=== PATIENT | female | born 1945 | race Caucasian/White ===

== ENCOUNTER 2021-03-28 12:41 | Outpatient (CLI) | payer MEDICARE, SELFPAY ==
--- NOTE | ~2021-03-28 | MMUS_ITS ---
EXAMINATION: MM diagnostic jared BI w vanessa, US breast BI complete HISTORY: Right recent inverted nipple TECHNIQUE: ML, MLO and craniocaudal 3-D tomosynthesis images of both breasts were performed and [facility] were generated. CAD analysis was submitted and interpreted. High resolution complete bilateral breast ultrasound was performed. COMPARISON: 05/23/2019 bilateral digital screening mammogram 12/24/2015 Limited left breast ultrasound examination 06/04/2015 and 10/31/2014 diagnostic left mammogram and limited left breast ultrasound 10/20/2014 bilateral digital screening mammogram BREAST PARENCHYMAL COMPOSITION: There are scattered areas of fibroglandular density. FINDINGS: MAMMOGRAPHIC FINDINGS: There are scattered 5 mm or smaller circumscribed right breast low-density opacities with likely kaushik gn mammographic features. Possible subtle architectural distortion in the upper mid left breast on MLO view. No suspicious mass or architectural distortion, malignant calcification, skin thickening or retractio n of either breast is noted otherwise. ULTRASOUND: Right breast: 6:00 1 cm from nipple: Parallel circumscribed 2.3 x 3 x 4 mm hypoechoic lesion without internal vascu larity or posterior shadowing, likely benign 12:00 3 cm from nipple: Rounded 3.7 mm sonolucency consistent with cyst No suspicious mass or shadowing is detected. IMPRESSION: 1. No mammographic evidence of malignancy 2. Routine mammographic screening is recommended BI-RADS Category 2: Benign finding(s). Reviewed, dictated and finalized at location A. IMPRESSION: 1. No mammographic evidence of malignancy 2. Routine mammographic screening is recommended BI-RADS Category 2: Benign finding(s).
== END 2021-03-28 12:42 | disposition home or self-care (01) ==
LOC: ANHIMG 12:41
PROVIDERS: PCP Family Medicine; Visit Provider Physician Assistant Medical
DX: N64.59 Other signs and symptoms in breast (principal); R92.8 Other abnormal and inconclusive findings on diagnostic imaging of breast
CPT/HCPCS: 76641; 77062; 77066; G0279

== ENCOUNTER 2021-05-31 00:24 | Day surgery (SDC) | payer MEDICARE, SELFPAY ==
[2021-05-21 15:00] VITALS: BMI 23.4
--- NOTE | 2021-05-31 07:12 | PM.HPGS ---
History of Present Illness History of Present Illness Consent: Risks, benefits, and alternatives have been discussed and questions answered. Patient agrees to proceed with procedure. Chief complaint: family hx of colon ca Narrative: Alysha Casillas is a 76 year old female Here for colon cancer screening. Her sister had colon cancer Review of Systems Review of Systems: All systems reviewed & are unremarkable except as noted in HPI and below PMFSH Past Medical History Medical History (Updated 05/31/21 @ 08:07 by Manuel Willoughby MD) Essential (primary) hypertension Surgical History Surgical History H/O basal cell carcinoma excision Family History Family History Mother Family history of osteoporosis, Onset Age: 86 Hypertension, Onset Age: 86 Family history of elevated blood lipids, Onset Age: 86 Family history of cardiovascular disease, Onset Age: 86 Family history of malignant neoplasm of breast in first degree relative, Onset Age: 86 Family history of congestive heart failure, Onset Age: 86 Father Family history of emphysema, Onset Age: 60 Other Family history of hypercholesterolemia Social History Social History Smoking status: Never smoker Substance use type: does not use Living arrangements: with family Gender identity (if verbalized by the patient): Female Meds Home Medications and Allergies Home Medications Medication Instructions Recorded Confirmed Type lisinopril 5 mg tablet 5 mg PO DAILY #90 tablet 04/30/20 05/21/21 Rx simvastatin 10 mg tablet See Rx Instructions .ROUTE 05/15/21 05/21/21 Rx .COMPLEX #90 tablet Allergies Allergy/AdvReac Type Severity Reaction Status Date / Time raloxifene Allergy Unknown Anemia Verified 05/31/21 07:34 Exam Resp: Auscultation: clear to auscultation bilaterally Cardio: Rate: regular rate Rhythm: regular rhythm GI: GI Palp: Yes Soft to palpation and No Tenderness to palpation present (GI) Assessment and Plan Assessment and plan (1) Colon cancer screening: Code(s): Z12.11 - Encounter for screening for malignant neoplasm of colon Status: Acute Assessment and Plan: Colonoscopy with possible biopsy or polypectomy or cautery or injection of substances.
[2021-05-31 07:35] VITALS: BP 113/91; PULSE 63; RESP 14; TEMP 36.2; O2SAT 99; BMI 23.3
[2021-05-31] MEDS: LACTATED RINGERS 1,000 ML 150 ML IV CONT (07:49)
--- NOTE | 2021-05-31 08:12 | WPDANESEPPF ---
Anes - Initial Pre Proc Eval Procedure: Operation Date: 05/31/21 08:30 Proposed Procedures p Screening Colonoscopy - Андрей Yost MD Date/Time: 05/31/21 08:12 Surgeon: Андрей Yost MD Pre Op Diagnosis: family hx of colon ca Patient Data Age: 76 Gender: F Height: 1.6 m Weight: 59.7 kg Last Vital Signs Temp 97.1 F L 05/31/21 07:35 Pulse 63 05/31/21 07:35 Resp 14 05/31/21 07:35 BP 113/91 H 05/31/21 07:35 Pulse Ox 99 05/31/21 07:35 Allergies Allergy/AdvReac Type Severity Reaction Status Date / Time raloxifene Allergy Unknown Anemia Verified 05/31/21 07:34 Home Medications Medication Instructions Recorded Confirmed Type lisinopril 5 mg tablet 5 mg PO DAILY #90 tablet 04/30/20 05/31/21 Rx simvastatin 10 mg tablet See Rx Instructions .ROUTE 05/15/21 05/31/21 Rx .COMPLEX #90 tablet Patient hx anesthesia problems: none Family hx anesthesia problems: none PMFSH Past Medical History Medical History (Updated 05/31/21 @ 08:07 by Manuel Willoughby MD) Essential (primary) hypertension Surgical History Surgical History H/O basal cell carcinoma excision Family History Family History Mother Family history of osteoporosis, Onset Age: 86 Hypertension, Onset Age: 86 Family history of elevated blood lipids, Onset Age: 86 Family history of cardiovascular disease, Onset Age: 86 Family history of malignant neoplasm of breast in first degree relative, Onset Age: 86 Family history of congestive heart failure, Onset Age: 86 Father Family history of emphysema, Onset Age: 60 Other Family history of hypercholesterolemia Social History Social History Smoking status: Never smoker Substance use type: does not use Living arrangements: with family Gender identity (if verbalized by the patient): Female Anes - Eval Final PreProcedure Day of Procedure 05/31/21 08:12 Patient weight: normal Heart: regular rate and rhythm Lungs: clear to auscultation Airway: Mallampati scale class II Neurological: alert and oriented Last oral intake: >/= 8 hours ASA classification: II Emergent: no Anesthetic plan: proceed Anesthesia type and monitoring: general GIVS and standard monitoring Informed Consent: The patient's anesthetic plan and its attendant risks and benefits were discussed with the patient/family/POA. Questions were solicited and answers provided to the satisfaction of the patient/family/POA.
[2021-05-31 08:49] VITALS: BP 110/66; PULSE 75; RESP 25; O2SAT 97
[2021-05-31 08:59] VITALS: BP 113/72; PULSE 72; RESP 25; O2SAT 98
[2021-05-31 09:09] VITALS: BP 122/71; PULSE 62; RESP 40; O2SAT 100
== END 2021-05-31 09:25 | disposition home or self-care (01) ==
PROVIDERS: PCP Family Medicine; Visit Provider Internal Medicine Gastroenterology
PROC: 0DJD8ZZ Inspection of Lower Intestinal Tract, Via Natural or Artificial Opening Endoscopic (ICD-10-PCS; CPT 45378; principal; 2021-05-31 08:30)
DX: Z12.11 Encounter for screening for malignant neoplasm of colon (principal); Z80.0 Family history of malignant neoplasm of digestive organs; K57.30 Diverticulosis of large intestine without perforation or abscess without bleeding; K64.8 Other hemorrhoids; I10 Essential (primary) hypertension; Z85.828 Personal history of other malignant neoplasm of skin
CPT/HCPCS: G0105; J2001; J2704; J7120

== ENCOUNTER 2022-06-06 14:27 | Outpatient (CLI) | payer MEDICARE, SELFPAY ==
--- NOTE | ~2022-06-06 | DEXA_ITS ---
Bone Density Report Name: CELESTE MARROQUIN Age: 77 Sex: Female Ethnicity: White Date of : 1945 Indication: postmenopausal; screening for osteoporosis; height loss; hysterectomy; Referring Provider: RAFAELA CONTRERAS Study: Bone densitometry was performed. Exam Date: June 06, 2022 Accession number: [id number] Bone Density: Region BMD T-score Z-score Classification AP Spine(L1-L4) 0.905 -1.3 1.1 Osteopenia Femoral Neck (Left) 0.566 -2.5 -0.5 Osteoporosis Total Hip (Left) 0.765 -1.5 0.3 Osteopenia Femoral Neck (Right) 0.555 -2.6 -0.5 Osteoporosis Total Hip (Right) 0.783 -1.3 0.5 Osteopenia Total Hip Mean 0.774 -1.4 0.4 Osteopenia World Health Organization criteria for BMD impression classify patients as: Normal (T-score at or above -1.0), Osteopenia (T-score between -1.0 and -2.5), or Osteoporosis (T-score at or below -2.5). 10-year Fracture Risk: FRAX not reported because: Some T-score for Spine Total or Hip Total or Femoral Neck at or below -2.5 Clinical Information Provided by Patient: Has used the following medications: Vitamin D, Calcium Has the following medical conditions: Hysterectomy Patient maximum height was 64 Drinks caffeinated beverages Onset of menses at age 18 Number of children 0 Impression: The patient has osteoporosis, based on the Right Femoral Neck T-score. Discussion: INCREASED RISK OF FRACTURE. BONE DENSITY IS UNDESIRABLY LOW AT ONE OR MORE SKELETAL SITES, CONSISTENT WITH POSTMENOPAUSAL OSTEOPOROSIS. This patient's lowest T-score meets the World Health Organization's (WHO) criteria for osteoporosis at one or more sites (T-score -2.5 or below). In untreated patients, the risk of osteoporotic fracture increases approximately two-fold for each 1.0 SD decrease in T-score. Low bone density is not the only risk factor for fracture; also consider factors such as patient's age, frailty or poor health, risk of falling, risk of injury, previous osteoporotic fracture, family history of osteoporosis, cigarette smoking, low body weight, etc. Not everyone with low bone mineral density has osteoporosis; osteomalacia and other metabolic bone disorders should also be considered. Patients who have osteoporosis should be evaluated for specific diseases and conditions (secondary causes) that may cause or contribute to bone loss. The [place] Association [employer] Endocrinologists (AACE) and National Osteoporosis Foundation (NOF) recommend pharmacologic intervention for all postmenopausal women whose T-score is in this range. The patient should follow a healthful lifestyle (good nutrition with adequate calcium and vitamin D, and appropriate weight-bearing exercise). Follow-Up: Consider a repeat BMD and Vertebral Fracture Assessment (VFA) exam in 2 years or sooner if medically
--- NOTE | ~2022-06-06 | MM_ITS ---
EXAMINATION: MM screening jared BI w vanessa HISTORY: Screening mammogram TECHNIQUE: Craniocaudal and mediolateral oblique 3-D tomosynthesis images were obtained and synthetic 2-D images were generated. CAD analysis was submitted and interpreted. COMPARISON: 03/24/2021 diagnostic bilateral mammogram and bilateral complete breast ultrasound examina tion BREAST PARENCHYMAL COMPOSITION: There are scattered areas of fibroglandular density. FINDINGS: Scattered approximately 5 mm or smaller occasional circumscribed opacities are noted. Minim al benign calcification. There is no evidence of suspicious mass, calcification, or architectural dis tortion to suggest malignancy in either breast. There has been no suspicious interval change. IMPRESSION: 1. No mammographic evidence of malignancy. 2. Recommend routine screening mammography in one year. BI-RADS Category 2: Benign finding(s). Reviewed, dictated and finalized at location A.
== END 2022-06-06 14:28 | disposition home or self-care (01) ==
LOC: ANHIMG 14:28
PROVIDERS: PCP Family Medicine; Visit Provider Family Medicine
DX: Z12.31 Encounter for screening mammogram for malignant neoplasm of breast (principal); Z78.0 Asymptomatic menopausal state; M85.89 Other specified disorders of bone density and structure, multiple sites; M81.0 Age-related osteoporosis without current pathological fracture
CPT/HCPCS: 77063; 77067; 77080

== ENCOUNTER 2023-12-30 13:17 | Outpatient (CLI) | payer MEDICARE, SELFPAY ==
--- NOTE | ~2023-12-30 | MM_ITS ---
EXAMINATION: MM screening jared BI w vanessa HISTORY: Screening mammogram TECHNIQUE: Craniocaudal and mediolateral oblique 3-D tomosynthesis images were obtained and synthetic 2-D images were generated. CAD analysis was submitted and interpreted. COMPARISON: 06/06/2022 bilateral screening mammogram 03/24/2021 bilateral diagnostic mammography and bilateral complete breast ultrasound examination BREAST PARENCHYMAL COMPOSITION: There are scattered areas of fibroglandular density. FINDINGS: Occasional circumscribed low-density opacities, the largest situated posteriorly in the low er right breast, measuring approximately 5 mm maximal dimension. There is no evidence of suspicious m ass, calcification, or architectural distortion to suggest malignancy in either breast. There has bee n no suspicious interval change. IMPRESSION: 1. Benign findings. No mammographic evidence of malignancy. 2. Recommend routine screening mammography in one year. BI-RADS Category 2: Benign finding(s). Reviewed, dictated and finalized at location A.
== END 2023-12-30 13:18 | disposition home or self-care (01) ==
LOC: ANHIMG 13:17
PROVIDERS: PCP Family Medicine; Visit Provider Family Medicine
DX: Z12.31 Encounter for screening mammogram for malignant neoplasm of breast (principal); R92.8 Other abnormal and inconclusive findings on diagnostic imaging of breast
CPT/HCPCS: 77063; 77067

== ENCOUNTER 2024-04-11 08:57 | Outpatient (CLI) | payer MEDICARE, SELFPAY ==
[2024-04-12 08:24] LABS: Kit Draw Collected
== END 2024-04-11 08:58 | disposition home or self-care (01) ==
LOC: ANHGOSHLAB 09:00
PROVIDERS: PCP Family Medicine; Visit Provider Nurse Practitioner Family
DX: E78.5 Hyperlipidemia, unspecified (principal); M81.0 Age-related osteoporosis without current pathological fracture; K58.9 Irritable bowel syndrome, unspecified; I10 Essential (primary) hypertension; Z11.59 Encounter for screening for other viral diseases
CPT/HCPCS: 36415

== ENCOUNTER 2024-05-24 12:31 | Outpatient (CLI) | payer MEDICARE, SELFPAY ==
--- NOTE | ~2024-05-24 | XR_ITS ---
XR chest 2V 05/24/2024 13:05 Indication: Preop. Hemorrhoids. Procedure: 2 view chest Comparison: No prior studies for comparison. Findings: Heart size normal. No focal air space disease, pulmonary edema, pleural effusion or suspect ed pneumothorax. Moderate size hiatal hernia. Impression: 1: Moderate sized hiatal hernia. Reviewed, dictated and finalized at location B. Impression: 1: Moderate sized hiatal hernia.
--- NOTE | 2024-05-24 12:45 | ECG_ITS ---
Test Date: 2024-05-24 12:53:31 Measurements Intervals Hunter Rate: 67 P: 63 AR: 146 QRS: 46 QRSD: 87 T: 38 QT: 411 QTc: 436 Interpretive Statements SINUS RHYTHM No previous ECG available for comparison Electronically Signed On 05-24-2024 15:19:57 CDT by Kris Clark M.D.
== END 2024-05-24 12:32 | disposition home or self-care (01) ==
PROVIDERS: PCP Family Medicine; Visit Provider Surgery
DX: K64.3 Fourth degree hemorrhoids (principal); K44.9 Diaphragmatic hernia without obstruction or gangrene
CPT/HCPCS: 71046; 93005

== ENCOUNTER 2024-05-26 01:10 | Day surgery (SDC) | payer MEDICARE, SELFPAY ==
[2024-05-24 09:03] VITALS: BMI 22.6
--- NOTE | 2024-05-24 13:39 | PC.NURSE ---
Report to the Outpatient Waiting Room, entrance under the green pavilion located off [facility], at 1130 on 05/26/24. Planned Procedure Time: 1330. Time changes happen often and if your time is changed the preop area will call you the afternoon before. - You and your visitor will be asked to self-screen and do not enter if you have any COVID symptoms. - A mask is optional within the hospital at this time. Patients may have clear liquids (water, carbonated beverages, clear teas, apple juice) until 3 hours prior to surgery with a maximum of 20 ounces. - No food from midnight until time of surgery -Patient states informed by office staff she can continue food intake until MN on 05/25/24 and was also told no bowel prep was needed. Take the following medications with a SIP of water the morning of surgery: none DO NOT STOP ANY OF YOUR OTHER PRESCRIPTION MEDICATIONS PRIOR TO SURGERY ?EXCEPT THE FOLLOWING Medications to discontinue per physician vitamins and supplements were stopped 05/23/24. Date to take last dose Please no make-up, nail peruvian, hairspray, perfume, deodorant, or body powder the day of surgery. No jewelry (including any body piercings) or valuables the day of surgery, leave them at home. Please take a shower or bath the night before, or the morning of, surgery with an antibacterial soap. Wear comfortable, loose fitting clothing. - Jewelry must be removed prior to entering the operating room. Rings and piercings that are not removed may be cut off. - The hospital will not accept responsibility for valuables. - Please leave all valuables, including medications, at home the day of surgery. If you are going home after surgery, a licensed medical van driver must drive you home. - NO public transportation without another adult if you receive anesthesia. - We recommend that an adult stay with you for 24 hours following discharge. - We also recommend that you do not drive, make important decision, drink alcoholic beverages, or take any drugs that were not prescribed by your health care provider for at least 24 hours after your discharge time. Follow any additional instructions given to you from your surgeon. If you or anyone in your household have experienced Covid symptoms in the past week, please notify your surgeon or the nurse liaison at the phone number below for possible testing. Telephone instructions given to patient and asked if any additional questions and then verbalized understanding. Patient advised to call surgeon office or pre surgery nurse liaison [phone] if any additional questions.
[2024-05-26] VITALS (10 sets, daily range): BP systolic 134–163; BP diastolic 65–86; PULSE 64–89; RESP 10–21; TEMP 36.1–36.2; O2SAT 100
[2024-05-26] MEDS: ACETAMINOPHEN 500 MG TABLET 1000 MG PO (12:10)
[2024-05-26] MEDS: LACTATED RINGERS 1,000 ML 30 ML IV CONT (12:20)
[2024-05-26] MEDS: KETOROLAC 15 MG/ML VIAL (*BKC) IV PUSH (13:22)
--- NOTE | 2024-05-26 13:35 | WPDANESEPPF ---
Anes - Initial Pre Proc Eval Procedure: Operation Date: 05/26/24 13:30 Proposed Procedures p Excision Single Complex Internal and External Hemorrhoids - Kaleb Rubio MD Date/Time: 05/26/24 13:35 Surgeon: Kaleb Rubio MD Pre Op Diagnosis: Prolapse bleeding internal & external hemorrhoids Patient Data Age: 79 Gender: F Height: 1.6 m Weight: 58.5 kg Last Vital Signs Temp 97.2 F L 05/26/24 12:32 Pulse 70 05/26/24 12:32 Resp 16 05/26/24 12:32 BP 134/69 05/26/24 12:32 Pulse Ox 100 05/26/24 12:32 O2 Del Method Room Air 05/26/24 12:32 Allergies Allergy/AdvReac Type Severity Reaction Status Date / Time cat dander Allergy Unknown Unknown Verified 05/24/24 08:59 raloxifene Allergy Unknown Anemia Verified 05/24/24 08:59 Home Medications Medication Instructions Recorded Confirmed Type simvastatin 10 mg tablet See Rx Instructions .Route 12/11/23 05/26/24 Rx .COMPLEX #90 tabs lisinopril 5 mg tablet See Rx Instructions .Route 12/30/23 05/26/24 Rx .COMPLEX #90 tabs alendronate 70 mg tablet 70 mg PO WEEKLY #12 tabs 05/09/24 05/26/24 Rx calcium carbonate 600 mg-vitamin 1 tablet PO DAILY 05/24/24 05/26/24 History D3 20 mcg (800 unit) chewable tablet (Caltrate 600 plus D) multivitamin-ferrous 1 tablet PO DAILY 05/24/24 05/26/24 History fumarate-folic acid 18 mg-400 mcg tablet (Centrum Women) Patient hx anesthesia problems: none Family hx anesthesia problems: none Results Review: All pre-operative results and documents have been reviewed as part of the pre-operative evaluation. [facility] Past Medical History Medical History Essential (primary) hypertension Surgical History Surgical History H/O basal cell carcinoma excision Family History Family History Mother Family history of osteoporosis, Onset Age: 86 Hypertension, Onset Age: 86 Family history of elevated blood lipids, Onset Age: 86 Family history of cardiovascular disease, Onset Age: 86 Family history of malignant neoplasm of breast in first degree relative, Onset Age: 86 Family history of congestive heart failure, Onset Age: 86 Father Family history of emphysema, Onset Age: 60 Other Family history of hypercholesterolemia Social History Social History Smoking status: Never smoker Alcohol intake: current Drinks per week: 3 Alcohol use details: wine Substance use: former Substance use type: marijuana Other substance usage details: not since Do You Feel Safe in your Home?: Yes Lack of Transportation: No Lack of Food: Never True Current Housing: I Have Housing Concerned About Future Housing: No Difficulty Paying Gas/Electric Bills: No Difficulty Paying for Meds: No Currently Unemployed: No Education: Master's Degree or Higher Difficulty w/ Childcare or Family Care: No Living arrangements: alone Gender identity (if verbalized by the patient): Female Spiritual care concerns: No Anes - Eval Final PreProcedure Day of Procedure 05/26/24 13:35 Patient weight: normal Heart: regular rate and rhythm Lungs: clear to auscultation Airway: Mallampati scale and special considerations (Missing many teeth, post aspect upper and lower, none loose. ) Neurological: alert and oriented Last oral intake: >/= 8 hours Emergent: no Anesthetic plan: proceed Anesthesia type and monitoring: general ETT and standard monitoring Results Review: All pre-operative results and documents have been reviewed as part of the pre-operative evaluation. HTN, hyperlipidemia, pt very active as a yoga/ve teacher, no cp or sob w activity. Informed Consent: The patient's anesthetic plan and its attendant risks
--- NOTE | 2024-05-26 13:58 | WPDHPUPDATE1 ---
History and Physical Update Update Date/Time: 05/26/24 13:58 History and Physical has been reviewed, including an updated exam of the patient. There are NO changes in the patient's condition. Risks, benefits, and alternatives have been discussed and questions answered. Patient agrees to proceed with procedure.
[2024-05-26] MEDS: ceFAZolin 2 GM/D5W 50 ML 2 GM/50 ML BAG IVPB (14:15)
[2024-05-26] MEDS: BUPIVACAINE/EPINEPHRINE 0.5% 10 ML VIAL 40 ML INFILTRATE (14:18)
--- NOTE | 2024-05-26 15:08 | W.PM.PROC2 ---
Procedure Note - Detailed Date of Procedure 05/26/24 Pre-op Diagnosis Prolapsed, bleeding internal & external hemorrhoids Post-op Diagnosis Other (Right-sided anal canal mass 6 x 3 cm) Procedure Performed Transrectal excision, right sided, anal canal mass, 6 cm Surgeon Kaleb Rubio MD [facility] Simón Anesthesia General and Local Indications Patient has noted protruding anal canal tissue for about a year and a half. She more recently has noticed more bleeding and more protrusion. It is tender but not significantly painful. She was seen in the office and found to have a perianal mass that appeared to be a prolapsed internal hemorrhoid or possibly an anal canal cancer. She is taken to surgery now for excision. She has a sister who had colon cancer. Findings Lesion did not appear to be a hemorrhoid. It was about 6 cm in length which is to say the radial dimension from inside the rectum to the perianal skin was 6 cm. It was about 3 cm in width. It appeared to be polypoid. It was completely excised but without any margin. Description of Procedure Patient was taken to surgery and induced into general anesthesia. She was then placed in prone alton-knife position. The buttocks were taped apart. Prep and drape was carried out. Hill-Layton anoscope was introduced into the rectum and the anal canal mass was examined. Findings are as above. I infiltrated local anesthesia all around the right-sided anal canal mass. I also infiltrated local intrasphincteric circumferentially. I placed the operating anoscope with obturator in the rectum and removed the obturator. The lesion was seen well. I was able to excise the lesion with little or or no margin but removed all gross evidence of this anal canal mass. It was sent to pathology in formalin labeled right-sided anal canal mass. A running, locking 3-0 chromic suture was then used to close the mucosal and skin defect. The closure hemostatic. There was minimal bleeding. No other anorectal pathology was noted. The rectum was dressed with Xeroform gauze fluffs and Medipore tape. Patient was returned to a supine position, awakened and taken to recovery in good condition. Sponge and needle counts were correct x2. Estimated Blood Loss -5 Drains No Packing No Pathology Yes (Right-sided anal canal mass) Complications None Condition Stable Disposition PACU [facility] Billing Surgery - Charge Forward: Surgery Billing (Transrectal excision 6 cm anal canal mass)
[2024-05-26] MEDS: oxyCODONE HCL (*CRX) 5 MG TAB IR PO (16:15)
== END 2024-05-26 17:30 | disposition home or self-care (01) ==
PROVIDERS: PCP Family Medicine; Visit Provider Surgery
PROC: (CPT 46922; principal; 2024-05-26 13:30)
DX: C44.520 Squamous cell carcinoma of anal skin (principal); I10 Essential (primary) hypertension; F12.90 Cannabis use, unspecified, uncomplicated; G89.18 Other acute postprocedural pain; Z79.83 Long term (current) use of bisphosphonates; Z85.828 Personal history of other malignant neoplasm of skin; Z80.0 Family history of malignant neoplasm of digestive organs; Z80.3 Family history of malignant neoplasm of breast; Z82.49 Family history of ischemic heart disease and other diseases of the circulatory system
CPT/HCPCS: 46922; 88304; A9270; J0330; J0690; J1100; J1885; J2405; J2704; J3010; J7120

== ENCOUNTER 2024-09-23 12:47 | Outpatient (CLI) | payer MEDICARE, SELFPAY ==
--- NOTE | ~2024-09-23 | DEXA_ITS ---
Bone Density Report Name: CELESTE MARROQUIN Age: 79 Sex: Female Ethnicity: White Date of : 1945 Indication: osteopenia; monitoring treatment; parental hip fracture; height loss; cancer; hysterectomy; Referring Provider: SAMREEN CAMACHO Study: Bone densitometry was performed. Exam Date: September 23, 2024 Accession number: [id number] Bone Density: Region BMD T-score Z-score Classification AP Spine(L1-L4) 0.882 -1.5 1.0 Osteopenia Femoral Neck (Left) 0.553 -2.7 -0.5 Osteoporosis Total Hip (Left) 0.831 -0.9 1.0 Normal Femoral Neck (Right) 0.517 -3.0 -0.8 Osteoporosis Total Hip (Right) 0.868 -0.6 1.3 Normal Total Hip Mean 0.849 -0.8 1.2 Normal World Health Organization criteria for BMD impression classify patients as: Normal (T-score at or above -1.0), Osteopenia (T-score between -1.0 and -2.5), or Osteoporosis (T-score at or below -2.5). 10-year Fracture Risk: FRAX not reported because: Some T-score for Spine Total or Hip Total or Femoral Neck at or below -2.5 Treated for osteoporosis Previous Exams: Region Exam Age BMD T-score BMD Change BMD Change Date g/cm2 vs Baseline vs Previous AP Spine (L1-L4) 09/23/2024 79 0.882 -1.5 0.049 (5.9%)* -0.023 (-2.5%) 06/06/2022 77 0.905 -1.3 0.072 (8.6%)* 0.048 (5.6%)* 07/13/2019 74 0.857 -1.7 0.024 (2.8%)* 0.024 (2.8%)* 02/04/2016 71 0.833 -1.9 Total Hip(Left) 09/23/2024 79 0.831 -0.9 0.034 (4.2%)# 0.066 (8.7%)* 06/06/2022 77 0.765 -1.5 -0.033 (-4.1%) 0.006 (0.7%) 07/13/2019 74 0.759 -1.5 -0.038 (-4.8%) 0.026 (3.5%) 05/13/2019 74 0.733 -1.7 -0.064 (-8.0%) -0.064 (-8.0%) 02/04/2016 71 0.797 -1.2 Total Hip(Right) 09/23/2024 79 0.868 -0.6 0.070 (8.8%)# 0.085 (10.8%)* 06/06/2022 77 0.783 -1.3 -0.014 (-1.8%) -0.006 (-0.8%) 07/13/2019 74 0.790 -1.2 -0.008 (-1.0%) -0.008 (-1.0%) 02/04/2016 71 0.798 -1.2 *Denotes significance at 95% confidence level, LSC for AP Spine = 0.022 g/cm2, LSC for Total Hip = 0.027 g/cm2 # Denotes dissimilar scan types or analysis methods Clinical Information Provided by Patient: Parent has had a hip fracture Is being treated for osteoporosis Has used the following medications: Evista (i.e. raloxifene), Fosamax (i.e. alendronate), Vitamin D, Calcium Has the following medical conditions: Cancer, Hysterectomy Patient maximum height was 64 Drinks caffeinated beverages Onset of menses at age 18 Impression: The patient has osteoporosis, based on the Right Femoral Neck T-score. The patient has risk factors, including: parental hip fracture. The BMD for the AP Spine (L1-L4) decreased, changing by -2.5% since the last DXA exam. Discussion: SIGNIFICANT BONE LOSS OBSERVED. Adherence to therapy (including calcium and vitamin D intake) should be assessed. If compliance is not a factor, review management and exclusion of secondary causes of bone loss. It is important to ask patients whether they are taking their medications and to encourage continued and appropriate compliance with their osteoporosis therapies to reduce fracture risk. It is also important to review their risk factors and encourage appropriate calcium and vitamin D intakes, exercise, fall prevention and other lifestyle measures. Follow-Up: Consider a repeat BMD and Vertebral Fracture Assessment (VFA) exam in 2 years or sooner if medically necessary, to reassess this patient's status. Reported by: RAFI on 09/23/2024 1:30:00 PM. Reviewed, dictated and finalized at location [facility]
== END 2024-09-23 12:48 | disposition home or self-care (01) ==
LOC: ANHIMG 12:48
PROVIDERS: PCP Family Medicine; Visit Provider Nurse Practitioner Family
DX: M85.89 Other specified disorders of bone density and structure, multiple sites (principal); M81.0 Age-related osteoporosis without current pathological fracture
CPT/HCPCS: 77080

== ENCOUNTER 2025-04-12 09:57 | Outpatient (CLI) | payer MEDICARE, SELFPAY ==
--- NOTE | ~2025-04-12 | MM_ITS ---
EXAMINATION: MM screening [facility] BI w vanessa HISTORY: Screening TECHNIQUE: Craniocaudal and mediolateral oblique 3-D tomosynthesis images were obtained and synthetic 2-D images were generated. CAD analysis was submitted and interpreted. COMPARISON: Comparison to multiple prior studies sequentially, with oldest reviewed study dated 06/04. BREAST PARENCHYMAL COMPOSITION: Not dense: There are scattered areas of fibroglandular density. FINDINGS: There is no evidence of suspicious mass, calcification, or architectural distortion to sugg est malignancy in either breast. There has been no suspicious interval change. IMPRESSION: 1. No mammographic evidence of malignancy. 2. Recommend routine screening mammography in one year. BI-RADS Category 1: Negative Reviewed, dictated and finalized at location A.
--- OUTSIDE RECORDS SUMMARY | 2025-04-12 10:09 | XMS_ITS | Clinical Summary ---
Author Organization [facility] Address [address] [place] [address] Care Team Providers Care Powersaw Supervisor Name Role Phone Toi Tillman MD Primary Care Provider [phone] Kaleb Rubio MD Unavailable [phone] Heather Ivy MD PhD Unavailable [phone] Delfino Herman MD Unavailable [phone] Allergies Active Allergy Reactions Criticality Noted Date Comments Cat Dander Wheezing,Eye irritation Medium 07/15/2024 Medications lisinopriL (PRINIVIL,ZESTR IL) 5 mg tabletIndicatio ns:hypertension Take 1 tablet (5 mg total) by mouth district medical examiner before breakfast Active simvastatin (ZOCOR) 10 mg tabletIndicatio ns:hyperlipidem ia Take 1 tablet (10 mg total) by mouth district medical examiner before breakfast Active multivitamin with iron tabletIndicatio ns:Mineral Deficiency Prevention,Stephanie min Deficiency Prevention Take 1 tablet by mouth district medical examiner before breakfast Active calcium carbonate-vitam in D3 1,500 mg (600mg elemental) -800 unit per tabletIndicatio ns:Hypocalcemia Prevention,Prev ention of Vitamin D Deficiency Take 1 tablet by mouth district medical examiner before breakfast Active psyllium, aspartame, SF (METAMUCIL SF) 3.4 gram packetIndicatio ns:Irritable Bowel Syndrome,consti pation Take 1 packet by mouth 2 (two) times a day Active Prolia 60 mg/mL syringe Inject under the skin Active Active Problems Problem Noted Date Diagnosed Date Moderate protein-calorie malnutrition 10/17/2024 Calculus of gallbladder with cholecystitis without biliary obstruction 09/22/2024 Gallstones 09/22/2024 Liver lesion 09/22/2024 Hemangioma of other sites 09/22/2024 Anal cancer 07/06/2024 Cancer Staging:Clinical stage from 07/15/2024:Stage IIA(cT2, cN0, cM0) - Signed by Shimon Peterson MD on 12/20/2024 Melanocytic nevus of trunk 07/01/2017 Abnormal mammography 01/01/2016 Overview (12/23/2024): Left breast mass. For core Skin benign neoplasm 07/23/2015 Benign neoplastic disease 07/17/2014 Actinic keratosis 07/12/2012 Keratosis, senilis 07/12/2012 Encounters Date Type Department Care Team Description 03/31/2025 1:00 PM CDT Office Visit [facility] Radiation Oncology [address] [facility] Advanced Medicine [place] [address] Charles Lee MD PhD Anal cancer (HCC) (Primary Dx) 03/31/2025 11:25 AM CDT - 03/31/2025 11:59 PM CDT Hospital Encounter [facility] [address] [place] [address] Anal cancer (HCC) Discharge Disposition: Discharge to home or self care 03/30/2025 2:15 PM CDT Office Visit [facility] [address] [facility] [place] [address] Delfino Herman MD Anal cancer (HCC) (Primary Dx) 01/16/2025 2:00 PM CDT Clinical Support [facility] [place] - Lab Collection [address] [facility] Floor 5 [place] [address] Anal cancer (HCC) 01/16/2025 1:40 PM CDT Office Visit [facility] [address] [facility] [address] [place] [address] Heather Ivy MD PhD Anal cancer (HCC) (Primary Dx) 01/16/2025 1:00 PM CDT Clinical Support [facility] 5 [place] [address] Anal cancer (HCC) from Last 3 Months Immunizations Immunization Administration Dates Next Due Influenza, Quad, Adjuvantate d, Intramuscular 07/12/2020 Influenza, Quadrivalent, Hig h Dose, Preservative Free, Intrr 07/14/2023,06/06/2021 Influenza, Quadrivalent, Spl it, Preservative Free, Intramuscular 07/30/2022 Influenza, Trivalent, High D ose, Split, Preservative Free, Intramuscular 06/12/2024,07/22/2019,08/01/2018,07/06,06/30/2016,07/09/2015 Tdap 12/22/2018 Surgical History Surgery Date Site/Laterality Comments HYSTERECTOMY COLON SURGERY PORT PLACEMENT CHEST >5 YEARS 07/04/2024 N/A Medical History Medical History Date Comments High blood pressure Hypercholesteremia Back pain Squamous cell skin cancer 2020 Irritable bowel syndrome Family History Medical History Relation Name Comments Emphysema Father Breast cancer Mother Colon cancer Sister Relation Name Status Comments Father Mother Sister Alive Social History Tobacco Use Types Packs/Day Years Used Date Smoking Tobacco: Never Passive Smoke Exposure: Never Smokeless Tobacco: Never Tobacco Cessation:Counseling Given: Not Answered AUDIT-C Answer Date Recorded Q1: How often do you have a drink containing alc ohol? 2-4 times a month 10/26/2024 Q2: How many drinks containi ng alcohol do you have on a typical day when you are drinking? 1 or 2 10/26/2024 Q3: How often do you have si x or more drinks on one occasion? Never 10/26/2024 Personal Safety Answer Date Recorded Have you ever been in or are you currently in a harmful physical or emotional relationship or is someone making you feel afraid or unsafe? 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 Not on file Not on file Not on file Obstetrics History Last Filed Vital Signs Vital Sign Reading Time Taken Comments Blood Pressure 119/73 03/30/2025 2:24 PM CDT Pulse 69 03/30/2025 2:24 PM CDT Temperature 36.8 C (98.3 F) 03/30/2025 2:24 PM CDT Respiratory Rate 16 01/16/2025 1:33 PM CDT Oxygen Saturation 100% 03/30/2025 2:24 PM CDT Inhaled Oxygen Concentration - - Weight 55 kg (121 lb 3.2 oz) 03/31/2025 12:58 PM CDT Height 157.5 cm (5' 2) 03/30/2025 2:24 PM CDT Body Mass Index 22.17 03/30/2025 2:24 PM CDT Plan of Treatment Health Maintenance Due Date Last Done Comments Depression Screening 1945 Osteoporosis Screening-Bone Density Scan 1945 Hepatitis B Screening 1965 Pneumococcal vaccine 65+ (1 of 2 - PCV) 1966 Zoster Vaccine (1 of 2) 1966 Well Visit 65+ 02/02/2012 Covid-19 Vaccine (8 - Pfizer risk 2023- season) 2024 06/12/2024, 07/14/2023, 07/30/2022, Additional history exists Influenza Vaccine (#1) 2025 , 07/14/2023, 07/30/2022, Additional history exists Fall Risk Assessment 10/26/2025 10/26/2024, 07/15/20 24 DTaP/Tdap/Td Vaccine (2 - Td or Tdap) 12/22/2028 12/22/2018 Hepatitis C Screening Completed 06/27/2024 Medical Devices Implanted Type Area Supervisor Nurse Device Identifier Shelf Expiration Date Model / Serial / Lot [employer] Excela Low Porfile Power Port 8fr 1.6mm 1 Lumen [id number] - [id number] Implanted:Qty: 1 on 07/04/2024 at [facility] [employer] 02/17/2029 [id number] / / [id number] Procedures Procedure Name Priority Date/Time Associated Diagnosis Comments CT ABDOMEN PELVIS W CONTRAST Schedule Routine, Read Routine (OP Routine) 03/31/2025 12:18 PM CDT Anal cancer (HCC) EGFR Routine 01/16/2025 1:04 PM CDT Anal cancer (HCC) DIFFERENTIAL AUTO Routine 01/16/2025 1:0 4 PM CDT Anal cancer (HCC) CBC WITH AUTO DIFFERENTIAL Routine 01/16/2025 1:04 PM CDT Anal cancer (HCC) COMPREHENSIVE METABOLIC PANEL Routine 01/16/2025 1:04 PM CDT Anal cancer (HCC) HEPATITIS PANEL, ACUTE Routine 06/27/2024 3:23 PM CDT Anal cancer (HCC) from Last 3 Months or Most Recently Relevant to Health Maintenance Results * CT Abdomen Pelvis W Contrast (03/31/2025 12:18 PM CDT) Anatomical Region Laterality Modality Body N/A Computed Tomogra phy 03/31/2025 12:3 1 PM CDT Impressions 03/31/2025 12:31 PM CDT 1. Posttreatment changes in the anus. Mild thickening of the sigmoid colon with associated diverticulosis is likely favored to represent sequela of pelvic radiation and less likely in setting of diverticulitis. 2. No evidence of metastatic disease in the abdomen and pelvis. 3. 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 Electronically signed by: Angela Rivero M.D. 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 TECHNIQUE: Transaxial computed tomographic images of the abdomen and pelvis were obtained with intravenous contrast according to the standard protocol after the uneventful administration of 70 mL Opti-Ray 350 intravenous contrast. COMPARISON: MRI 07/22/2024 and MRI pelvis rectal 07/11/2024, CT 07/11/2024 FINDINGS: Fat-containing right Bochdalek hernia and left Bochdalek hernias. Clear lung bases. Heart size is normal. Large hiatal hernia is partially imaged. Large hepatic hemangioma in segment 7, unchanged. No suspicious liver lesion. No biliary ductal dilation. The patient is status post cholecystectomy, with surgical pathology demonstrating xanthogranulomatous cholecystitis. The pancreas and spleen are normal. Normal adrenals. The kidneys enhance symmetrically without hydronephrosis or nephrolithiasis. Portal veins appear mesenteric vein splenic vein are patent. No mesenteric or retroperitoneal lymphadenopathy. The celiac, superior mesenteric, renal and inferior mesenteric arteries are patent. Normal caliber abdominal aorta. Urinary bladder is decompressed. There are posttreatment changes in the anus and lower rectum. No perianal fluid collection or perirectal fluid collections seen. No lymphadenopathy is seen in the pelvis. Colonic diverticulosis. Mild thickening of the sigmoid colon with extensive colonic diverticulosis. There is mild fat stranding. Small amount of liquid stool is present in cecum. The appendix is normal. The small bowel is normal in caliber. There is mild rectus diastases. The duodenal sweep is unremarkable. There is no peritoneal or omental nodularity. No ascites. No acute fracture or suspicious osseous lesion. 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 TECHNIQUE: Transaxial computed tomographic images of the abdomen and pelvis were obtained with intravenous contrast according to the standard protocol after the uneventful administration of 70 mL Opti-Ray 350 intravenous contrast. COMPARISON: MRI 07/22/2024 and MRI pelvis rectal 07/11/2024, CT 07/11/2024 FINDINGS: Fat-containing right Bochdalek hernia and left Bochdalek hernias. Clear lung bases. Heart size is normal. Large hiatal hernia is partially imaged. Large hepatic hemangioma in segment 7, unchanged. No suspicious liver lesion. No biliary ductal dilation. The patient is status post cholecystectomy, with surgical pathology demonstrating xanthogranulomatous cholecystitis. The pancreas and spleen are normal. Normal adrenals. The kidneys enhance symmetrically without hydronephrosis or nephrolithiasis. Portal veins appear mesenteric vein splenic vein are patent. No mesenteric or retroperitoneal lymphadenopathy. The celiac, superior mesenteric, renal and inferior mesenteric arteries are patent. Normal caliber abdominal aorta. Urinary bladder is decompressed. There are posttreatment changes in the anus and lower rectum. No perianal fluid collection or perirectal fluid collections seen. No lymphadenopathy is seen in the pelvis. Colonic diverticulosis. Mild thickening of the sigmoid colon with extensive colonic diverticulosis. There is mild fat stranding. Small amount of liquid stool is present in cecum. The appendix is normal. The small bowel is normal in caliber. There is mild rectus diastases. The duodenal sweep is unremarkable. There is no peritoneal or omental nodularity. No ascites. No acute fracture or suspicious osseous lesion. IMPRESSION: 1. Posttreatment changes in the anus. Mild thickening of the sigmoid colon with associated diverticulosis is likely favored to represent sequela of pelvic radiation and less likely in setting of diverticulitis. 2. No evidence of metastatic disease in the abdomen and pelvis. 3. 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 Electronically signed by: Angela Rivero M.D. Charles Lee MD PhD IMG CT PROCEDURES Final Re sult * eGFR (01/16/2025 1:04 PM CDT) eGFR 72 >=60 mL/min/1. 73 m2 Comment: Interpretive Data Reference Interval Normal >/= 90 mL/min/1.73m2 Mildly decreased* 60 - 89 mL/min/1.73m2 Mildly to moderately decreased 45 - 59 mL/min/1.73m2 Moderately to severely decreased 30 - 44 mL/min/1.73m2 Severely decreased 15 - 29 mL/min/1.73m2 Kidney Failure < 15 mL/min/1.73m2 *Relative to young adult level Estimated glomerular filtration rate is determined by the 2020 CKD-EPI equation recommended by the National Kidney Foundation (A Unifying Approach to GFR Estimation: Recommendations of the NKF-ASK Task Force on Reassessing the Inclusion of Race in Diagnosing Kidney Disease, JASN 2020). The CKD-EPI equation should not be used for patients with unstable renal function and has not been validated in children and those over 70. Current interpretive data was last reviewed 2021. Blood 01/16/2025 1:04 PM CDT 01/16/2025 1:08 PM CDT us Heather Ivy MD PhD LAB BLOOD ORDERABLES Final Result ADDIS MCCARTY [facility] Department [place] [address] * (ABNORMAL) Differential, auto (01/16/2025 1:04 PM CDT) Neutrophil abs 2.51 1.50 - 6.50 K/cumm Comment:Testing performed by : [facility], [address] [place] [address] Lymphocyte abs 0.62(L) 0.80 - 3.30 K/cumm CERNER BIBIANA Comment:Testing performed by : [facility], [address] [place], [place] [id number] Monocyte abs 0.48 0.20 - 0.80 K/cumm ADDIS MCCARTY Comment:Testing performed by : [facility], [address] [place], [place] [id number] Eosinophil abs 0.05 0.00 - 0.50 K/cumm ADDIS MCCARTY Comment:Testing performed by : [facility], [address] [place] [phone] Basophil abs 0.09 0.00 - 0.10 K/cumm CERMADISON MCCARTY Comment:Testing performed by : [facility], [address] [place] [address] Neutrophil pct 67.1 % CERNER BJ Comment: Interpretive Data Percent cell count reference ranges are not reported, since discordance with absolute values may lead to misinterpretation of CBC data. Current Interpretive Data was last revised on 2018. Testing performed by: [facility], [address] [place] [phone] Lymphocyte pct 16.5 % CERNER BJ Comment: Interpretive Data Percent cell count reference ranges are not reported, since discordance with absolute values may lead to misinterpretation of CBC data. Current Interpretive Data was last revised on 2018. Testing performed by: [facility], [address] [place] [phone] Monocyte pct 12.9 % ADDIS MCCARTY Comment: Interpretive Data Percent cell count reference ranges are not reported, since discordance with absolute values may lead to misinterpretation of CBC data. Current Interpretive Data was last revised on 2018. Testing performed by: [facility], [address] [place] [phone] Eosinophil pct 1.3 % ADDIS MCCARTY Comment: Interpretive Data Percent cell count reference ranges are not reported, since discordance with absolute values may lead to misinterpretation of CBC data. Current Interpretive Data was last revised on 2018. Testing performed by: [facility], [address] [place], [place] [id number] Basophil pct 2.3 % ADDIS MCCARTY Comment: Interpretive Data Percent cell count reference ranges are not reported, since discordance with absolute values may lead to misinterpretation of CBC data. Current Interpretive Data was last revised on 2018. Testing performed by: [facility], [address] [place] [phone] Blood 01/16/2025 1:04 PM CDT 01/16/2025 1:06 PM CDT us Heather Ivy MD PhD LAB BLOOD ORDERABLES Final Result [facility] [address] [facility] Department [place] [address] * (ABNORMAL) CBC with auto differential (01/16/2025 1:04 PM CDT) WBC 3.73(L) 3.80 - 9.90 K/cumm Comment:Testing performed by : [facility], [address] [place] [phone] Hgb 11.2(L) 11.9 - 15.5 g/dL ADDIS MCCARTY Comment:Testing performed by : [facility], [address] [place] [phone] Hct 32.7(L) 35.6 - 45.5 % CERNER BJ Comment:Testing performed by : [facility], [address] [place], [place] [id number] Plt 219 150 - 400 K/cumm CERNER BJ Comment:Testing performed by : [facility], [address] [place], [place] [phone] MPV 8.0 6.8 - 10.4 fL CERMADISON BJ Comment:Testing performed by : [facility], [address] [place], [place] [phone] RBC 3.47(L) 3.90 - 5.20 M/cumm CERNER BJ Comment:Testing performed by : [facility], [address] [place], [place] [id number] MCV 94.2 81.3 - 96.4 fL CERNER BJ Comment:Testing performed by : [facility], [address] [place], [place] [id number] MCH 32.3 27.1 - 33.3 pg CERNER BJ Comment:Testing performed by : [facility], [address] [place], [place] [phone] MCHC 34.3 32.3 - 35.7 g/dL CERNER BJ Comment:Testing performed by : [facility], [address] [place], [place] [id number] RDW CV 13.3 11.1 - 14.9 % CERNER BJ Comment:Testing performed by : [facility], [address] [place], [place] [phone] NRBC abs 0.00 0.00 - 0.01 K/cumm CERMADISON BJ Comment:Testing performed by : [facility], [address] [place], [place] [phone] Blood 01/16/2025 1:04 PM CDT 01/16/2025 1:06 PM CDT us Heather Ivy MD PhD LAB BLOOD ORDERABLES Final Result [facility] [address] [facility] Department [place] [address] * Comprehensive metabolic panel (01/16/2025 1:04 PM CDT) Sodium 141 135 - 145 mmol/L Potassium, pl 4.3 3.3 - 4.9 mmol/L [facility] Chloride 109 97 - 110 mmol/L [facility] CO2 26 22 - 32 mmol/L [facility] Anion gap 6 2 - 15 mmol/L [facility] BUN 20 6 - 25 mg/dL [facility] Creatinine 0.84 0.60 - 1.10 mg/dL [facility] Glucose 91 70 - 199 mg/dL [facility] Comment: Interpretive Data Fasting glucose >/= 126 mg/dl is diagnostic for diabetes. Fasting is defined as no caloric intake for at least 8 hours. Fasting glucose between 100 mg/dl to 125 mg/dl is diagnostic of prediabetes. In a patient with classic symptoms of hyperglycemia or hyperglycemic crisis, a random glucose >/= 200 mg/dl is diagnostic for diabetes. In the absence of unequivocal hyperglycemia, results should be confirmed by repeat testing. The classification and Diagnosis of Diabetes Diabetes Care 202; 46: S19-S40. Current interpretive data was last revised 2022. Calcium 9.4 8.5 - 10.3 mg/dL [facility] Bilirubin, total 0.4 0.1 - 1.2 mg/dL [facility] Protein, pl 6.7 6.5 - 8.5 g/dL [facility] Albumin 3.9 3.5 - 5.0 g/dL [facility] Alk phos 55 40 - 130 Units/L [facility] ALT 16 7 - 45 Units/L [facility] AST 26 10 - 45 Units/L [facility] Blood 01/16/2025 1:04 PM CDT 01/16/2025 1:08 PM CDT us Heather Ivy MD PhD LAB BLOOD ORDERABLES Final Result [facility] [address] [facility] [place] [address] * Hepatitis panel, acute Blood (06/27/2024 3:23 PM CDT) Hep A IgM Nonreactive Nonreactive Hep B core IgM Nonreactive Nonreactive [facility] Hep C Ab Nonreactive Nonreactive [facility] Comment:Antibodies to HCV no t detected. Does NOT exclude the possibility of recent exposure to HCV. Current interpretive data was last revised on 22 HepBsAg Nonreactive Nonreactive [facility] Blood 06/27/2024 3:23 PM CDT 06/27/2024 4:06 PM CDT us Heather Ivy MD PhD LAB MICROBIOLOGY - GENERAL ORDERABLES Edited Result - Final [facility] [address] [facility] [place] [address] from Last 3 Months or Most Recently Relevant to Health Maintenance Insurance AET MEDICARE AET MEDICARE Advance Directives For more information, please contact: [phone] * Full Code (Latest Code Status on File) Date Activated Date Inactivated Comments 07/04/2024 7:25 AM 07/05/2024 5:01 AM Care Teams Powersaw Supervisor Relationship Specialty Start Date End Date Toi Tillman MD PCP - General 07/01/17 Kaleb Rubio MD [address] [facility] [address] [place] [address] Referring Physician Vascular Surgery 06/10/24 Heather Ivy MD PhD [address] [facility] IM MEDICAL ONCOLOGY, [address] [place] [address] Medical Oncologist/Ui Programmer Medical Oncology 06/14/24 Delfino Herman MD [phone] [place] [address] Surgeon General Surgery 12/22/24
--- OUTSIDE RECORDS SUMMARY | 2025-04-12 10:09 | XMS_ITS ---
Author Organization [facility] Address [address] [facility] [place] [address] Care Team Providers Care Assistant Professor Of Dietetics Name Role Phone Toi Tillman MD Primary Care Provider [phone] Kaleb Rubio MD Unavailable [phone] Heather Ivy MD PhD Unavailable [phone] Delfino Herman MD Unavailable [phone] Active Problems Problem Noted Date Diagnosed Date [...] 07/17/2014 Actinic keratosis 07/12/2012 Keratosis, senilis 07/12/2012 Current Treatment and Therapy Plans Fluorouracil / MitoMYCIN with Concurrent Radiation 35 Day Cycle - Anal* Plan Start Date:08/07/2024 Plan Provider:Heather Ivy MD PhD Linked Problems Anal cancer (HCC) Treatment Medications dexAMETHasone (DECADRON)fluo rouracil (ADRUCIL) infusion - for home infusion (ADRUCIL)mitoMYcin (MUTAMYCIN) 0.5 mg/mL Hydration Therapy Plan* Plan Start Date:08/12/2024 Plan Provider:Heather Ivy MD PhD Linked Problems Anal cancer (HCC) Treatment Medications No medications scheduled. IV Maintenance Therapy Plan* Plan Start Date:08/12/2024 Plan Provider:Heather Ivy MD PhD Linked Problems Anal cancer (HCC) Treatment Medications No medications scheduled. Past Treatment and Therapy Plans No past plan information found. Radiation Treatments (No Episode) * Course [id number]/08/2024 - 09/19/2024 Treatment Period Energy Fraction Dose Fractions Total Dose Plans Planned PELVIS_ANUS 08/08/2024 - 09/19/2024 168 30 / 5,040 Reference Points Delivered [id number] 08/08/2024 - 09/19/2024 5,040 Lifetime Dose Tracking * Chemical Lifetime Dose Automatic Entry Manual Entr y mitomycin 19.56 mg/m2 (31 mg) 19.56 mg/m2 (31 mg) 0 mg/m2 (0 mg) Fluoro Time 0.2 minutes 0.2 minutes 0 minutes DLP 638 mGycm 638 mGycm 0 mGycm
--- OUTSIDE RECORDS SUMMARY | 2025-04-12 10:09 | XMS_ITS | Continuity of Care Document ---
Author Organization [facility] Address [address] [place] [address] Phone Care Team Providers Care Supervisor [employer] Name Role Phone Nirav Walter Unavailable Unavailable Procedures Procedure Date Post-op Follow-up Visit Post-op Follow-up Visit Remove Cataract, Insert Lens Office/outpatient Visit, [facility]-Professional Post-op Follow-up Visit Post-op Follow-up Visit Remove Cataract, Insert Lens Office/outpatient Visit, [facility] Advance Directives Directive Yes / No Effective Date File Name No Information Encounters Encounter Description Practice Location Reason(s) For Visit Diagnoses Date Provider Providers Copied on Encounter [facility], [address] [place] [address] [address], [place], [place], [id number], [place] tel:[phone] [facility] No Information 0 Jose Angel Gastelum. [facility] [address] , [address], [place], [address], [place]. tel:[phone] [facility], [address], [place], [place], [address], [place] tel:[phone] SEC [facility] No Information 0 Jose Angel Gastelum. [address] , [address], [place], [address], [place]. tel:[phone] [facility], [address], [place], [place], [address], [place] tel:[phone] [facility] No Information 1-201 0 Doisy Edward. [address] , [address], [place], [address], [place]. tel:[phone] Referring Provider: Chin Layton OD, [address] [place], [address]. tel:[phone] Office/outpat ient Visit, [facility] Eye [facility], [address], [place], [place], [address], [place] tel:[phone] [facility] No Information 6-201 0 Doisy Edward. [address] , [address], [place], [address], [place]. tel:[phone] Referring Provider: Chin Layton OD, [address] [facility] [place], [address]. tel:[phone] [facility] Eye [facility], [address], [place], [place], [address], [place] tel:[phone] [facility] No Information Dec-1 7-201 0 Doisy Edward. [address] , [address], [place], [address], [place]. tel:[phone] [facility] Eye [facility], [address], [place], [place], [address], [place] tel:[phone] [facility] No Information Mar-1 0-201 0 Doisy Edward. [address] , [address], [place], [address], [place]. tel:[phone] Referring Provider: Chin Layton OD, [address] [place], [address]. tel:[phone] [facility] Eye [facility], [address], [place], [place], [address], [place] tel:[phone] [facility] No Information 0 Doikayla Edpedro. [address] [facility] , [address], [place], [place], [facility], . tel:[phone] Referring Provider: Chin Layton OD, [address] [facility] [place], [address]. tel:[phone] Office/outpat ient Visit, [facility] Eye [facility], [address], [place], [place], [address], [place] tel:[phone] [facility] No Information 0 [facility] N[facility]av. [address] [facility] , [address], [place], [place], [facility], . tel:[phone] Referring Provider: Chin Layton OD, [address] [place], [place], [facility]. tel:[phone] Family History Family Member Type Diagnosis Age At Onset No Information Payers Payer name Insurance type Covered alliance party ID Authoriza tion(s) No Information Social History Type Description Quantity Date Captured Comments Sex Female Smoking Status No Information Chief Complaint And Reason For Visit No Information Reason For Referral Reason For Referral No Information History Of Present Illness Encounter Date Complaint History Of Prese nt Illness No Information Functional Status Date Functional Assessmen t No Information Instructions Date Instruction Additional Infor mation No Information Assessments Type Assessment Date No Information Patient Care Teams Name Effective Dates (start - stop) Status Members No Information
--- OUTSIDE RECORDS SUMMARY | 2025-04-12 10:09 | XMS_ITS | Referral Summary ---
Author Organization [facility] Address [address] [place] [address] Care Team Providers Care Presser And Shaper Knitted Goods Name Role Phone Toi Tillman MD Primary Care Provider [phone] Kaleb Rubio MD Unavailable [phone] Heather Ivy MD PhD Unavailable [phone] Delfino Herman MD Unavailable [phone] Encounters Date Type Department Care Team Description 03/31/2025 1:00 PM CDT Office Visit [facility] Radiation Oncology [address] [facility] Advanced [place] [address] Charles Lee MD PhD Anal cancer (HCC) (Primary Dx) 03/31/2025 11:25 AM CDT - 03/31/2025 11:59 PM CDT Hospital Encounter [facility] [address] [place] [address] Anal cancer (HCC) Discharge Disposition: Discharge to home or self care 03/30/2025 2:15 PM CDT Office Visit [facility] Surgery [address] [facility] 2[address] [place] [address] Delfino Herman MD Anal cancer (HCC) (Primary Dx) 01/16/2025 2:00 PM CDT Clinical Support [facility] - Lab Collection [address] [facility] Floor 5 [place] [address] Anal cancer (HCC) 01/16/2025 1:00 PM CDT Clinical Support [facility] Oncology Lab [address] [facility] [address] [place] [address] Anal cancer (HCC) 01/16/2025 1:40 PM CDT Office Visit [facility] [address] [place] [address] Heather Ivy MD PhD Anal cancer (HCC) (Primary Dx) from Last 3 Months Allergies Active Allergy Reactions Criticality Noted Date Comments Cat Dander Wheezing,Eye irritation Medium 07/15/2024 Medications lisinopriL (PRINIVIL,ZESTR IL) 5 mg tabletIndicatio ns:hypertension Take 1 tablet (5 mg total) by mouth industrial arts teacher before breakfast Active simvastatin (ZOCOR) 10 mg tabletIndicatio ns:hyperlipidem ia Take 1 tablet (10 mg total) by mouth industrial arts teacher before breakfast Active multivitamin with iron tabletIndicatio ns:Mineral Deficiency Prevention,Stephanie min Deficiency Prevention Take 1 tablet by mouth industrial arts teacher before breakfast Active calcium carbonate-vitam in D3 1,500 mg (600mg elemental) -800 unit per tabletIndicatio ns:Hypocalcemia Prevention,Prev ention of Vitamin D Deficiency Take 1 tablet by mouth industrial arts teacher before breakfast Active psyllium, aspartame, SF (METAMUCIL [...] 07/17/2014 Actinic keratosis 07/12/2012 Keratosis, senilis 07/12/2012 Immunizations Immunization Administration Dates Next Due Influenza, Quad, Adjuvantate d, Intramuscular 07/12/2020 Influenza, Quadrivalent, Hig h Dose, Preservative Free, Intrr 07/14/2023,06/06/2021 Influenza, Quadrivalent, Spl it, Preservative Free, Intramuscular 07/30/2022 Influenza, Trivalent, High D ose, Split, Preservative Free, Intramuscular 06/12/2024,07/22/2019,08/01/2018,07/06,06/30/2016,07/09/2015 Tdap 12/22/2018 Social History Tobacco Use Types Packs/Day Years [...] on file Legal Sex Female 12:58 AM RURAL SOCIOLOGIST Gender Identity Female 10/10/2024 6:20 AM RURAL SOCIOLOGIST Sexual Orientation Not on file 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 Electronically signed by: Angela Rivero M.D. us Charles Lee MD PhD IMG CT PROCEDURES [...] 1:04 PM CDT 01/16/2025 1:08 PM CDT Heather Ivy MD PhD LAB BLOOD ORDERABLES Final Result [facility] [place] [address] * (ABNORMAL) Differential, auto (01/16/2025 1:04 PM CDT) Neutrophil abs 2.51 1.50 - 6.50 K/cumm Comment:Testing performed by : [facility], [address] [place] [phone] Lymphocyte abs 0.62(L) 0.80 - 3.30 K/cumm [facility] Comment:Testing performed by : [facility], [address] [place] [phone] Monocyte abs 0.48 0.20 - 0.80 K/cumm [facility] Comment:Testing performed by : [facility], [address] [place] [phone] Eosinophil abs 0.05 0.00 - 0.50 K/cumm [facility] Comment:Testing performed by : [facility], [address] [place] [phone] Basophil abs 0.09 0.00 - 0.10 K/cumm [facility] Comment:Testing performed by : [facility], [address] [place] [phone] Neutrophil pct 67.1 % [facility] Comment: Interpretive Data Percent cell count reference ranges are not reported, since discordance with absolute values may lead to misinterpretation of CBC data. Current Interpretive Data was last revised on 2018. Testing performed by: [facility], [address] [place] [phone] Lymphocyte pct 16.5 % [facility] Comment: Interpretive Data Percent cell count reference ranges are not reported, since discordance with absolute values may lead to misinterpretation of CBC data. Current Interpretive Data was last revised on 2018. Testing performed by: [facility], [address] [place] [phone] Monocyte pct 12.9 % [facility] Comment: Interpretive Data Percent cell count reference ranges are not reported, since discordance with absolute values may lead to misinterpretation of CBC data. Current Interpretive Data was last revised on 2018. Testing performed by: [facility], [address] [place] [phone] Eosinophil pct 1.3 % [facility] Comment: Interpretive Data Percent cell count reference ranges are not reported, since discordance with absolute values may lead to misinterpretation of CBC data. Current Interpretive Data was last revised on 2018. Testing performed by: [facility], [address] [place] [phone] Basophil pct 2.3 % [facility] Comment: Interpretive Data Percent cell count reference ranges are not reported, since discordance with absolute values may lead to misinterpretation of CBC data. Current Interpretive Data was last revised on 2018. Testing performed by: [facility], [address] [place] [phone] Blood 01/16/2025 1:04 PM CDT 01/16/2025 1:06 PM CDT us Heather Ivy MD PhD LAB BLOOD ORDERABLES Final Result [facility] [place] [address] * (ABNORMAL) CBC with auto differential (01/16/2025 1:04 PM CDT) WBC 3.73(L) 3.80 - 9.90 K/cumm Comment:Testing performed by : [facility], [address] [place] [address] Hgb 11.2(L) 11.9 - 15.5 g/dL [facility] Comment:Testing performed by : [facility], [address] [place] [address] Hct 32.7(L) 35.6 - 45.5 % [facility] Comment:Testing performed by : [facility], [address] [place] [address] Plt 219 150 - 400 K/cumm [facility] Comment:Testing performed by : [facility], [address] [place] [address] MPV 8.0 6.8 - 10.4 fL [facility] Comment:Testing performed by : [facility], [address] [place] [address] RBC 3.47(L) 3.90 - 5.20 M/cumm [facility] Comment:Testing performed by : [facility], [address] [place] [address] MCV 94.2 81.3 - 96.4 fL [facility] Comment:Testing performed by : [facility], [address] [place] [address] MCH 32.3 27.1 - 33.3 pg [facility] Comment:Testing performed by : [facility], [address] [place] [address] MCHC 34.3 32.3 - 35.7 g/dL [facility] Comment:Testing performed by : [facility], [address] [place] [phone] RDW CV 13.3 11.1 - 14.9 % [facility] Comment:Testing performed by : [facility], [address] [place] [phone] NRBC abs 0.00 0.00 - 0.01 K/cumm [facility] Comment:Testing performed by : [facility], [address] [place] [phone] Blood 01/16/2025 1:04 PM CDT 01/16/2025 1:06 PM CDT Heather Ivy MD PhD LAB BLOOD ORDERABLES Final Result [facility] [place] [address] * Comprehensive metabolic panel (01/16/2025 1:04 PM CDT) Sodium 141 135 - 145 mmol/L Potassium, pl 4.3 3.3 - 4.9 mmol/L [facility] Chloride 109 97 - 110 mmol/L [facility] CO2 26 22 - 32 mmol/L [facility] Anion gap 6 2 - 15 mmol/L [facility] BUN 20 6 - 25 mg/dL [facility] Creatinine 0.84 0.60 - 1.10 mg/dL [facility] Glucose 91 70 - 199 mg/dL [facility] Comment: Interpretive Data Fasting glucose >/= 126 [...] 2022. Calcium 9.4 8.5 - 10.3 mg/dL [facility] Bilirubin, total 0.4 0.1 - 1.2 mg/dL [facility] Protein, pl 6.7 6.5 - 8.5 g/dL [facility] Albumin 3.9 3.5 - 5.0 g/dL [facility] Alk phos 55 40 - 130 Units/L [facility] ALT 16 7 - 45 Units/L [facility] AST 26 10 - 45 Units/L [facility] Blood 01/16/2025 1:04 PM CDT 01/16/2025 1:08 PM CDT us Heather Ivy MD PhD LAB BLOOD ORDERABLES Final Result Performing Organization Address City/[facility]/ZIP Co de Phone Number [facility] [place] [address] * Hepatitis panel, acute Blood (06/27/2024 3:23 PM CDT) Hep A IgM Nonreactive Nonreactive Hep B core IgM Nonreactive Nonreactive [facility] Hep C Ab Nonreactive Nonreactive [facility] Comment:Antibodies to HCV no t detected. Does NOT exclude the possibility of recent exposure to HCV. Current interpretive data was last revised on 22 HepBsAg Nonreactive Nonreactive [facility] Blood 06/27/2024 3:23 PM CDT 06/27/2024 4:06 PM CDT us Heather Ivy MD PhD LAB MICROBIOLOGY - GENERAL ORDERABLES Edited Result - Final [facility] [place] [address] from Last 3 Months or Most Recently Relevant to Health Maintenance Insurance [employer] MEDICARE [facility] MEDICARE Advance Directives For more information, please contact: [phone] * Full Code (Latest Code Status on File) Date Activated Date Inactivated Comments 07/04/2024 7:25 AM 07/05/2024 5:01 AM Care Teams Presser And Shaper Knitted Goods Relationship Specialty Start Date End Date Toi Tillman MD PCP - General 07/01/17 Kaleb Rubio MD [address] [facility] [facility] [address] [place] [address] Referring Physician Vascular Surgery 06/10/24 Heather Ivy MD PhD [address] [facility], [address] [place] [address] Medical Oncologist/Garbage Collector Supervisor Medical Oncology 06/14/24 Delfino Herman MD [phone] [place] [address] Surgeon General Surgery 12/22/24
--- OUTSIDE RECORDS SUMMARY | 2025-04-12 10:09 | XMS_ITS | Clinical Summary ---
Author Organization [facility] [place] Address [address] [place] [address] Phone Care Team Providers Care Class B Truck Driver Name Role Phone Toi Tillman MD Primary Care Provider [phone] Allergies No known active allergies Medications No known medications Active Problems Patient Care Coordination No te Formatting of this note migh t be different from the original. Primary Care: Toi Tillman MD Referring Provider: Toi Tillman MD [address] [place] [address] Other: Problem Noted Date Diagnosed Date Abnormal mammography 01/01/2016 Overview (01/10/2016): Left breast mass. For core Family History Medical History Relation Name Comments Breast Cancer Mother Cancer Sister colon Relation Name Status Comments Mother Sister Social History Tobacco Use Types Packs/Day Years Used Date Smoking Tobacco: Never Alcohol Use Standard Drinks/Week Comments Yes 0 (1 standard drink = 0.6 oz pur e alcohol) Comments No Sex and Gender Information Value Date Recorded Sex Assigned at Not on file Legal Sex Female 11:19 AM CDT Gender Identity Not on file Sexual Orientation Not on file Last Filed Vital Signs Vital Sign Reading Time Taken Comments Blood Pressure 148/67 01/10/2016 11:00 AM CDT Pulse 63 01/10/2016 11:00 AM CDT Temperature 36.8 C (98.3 F) 01/10/2016 9:23 AM CDT Respiratory Rate - - Oxygen Saturation - - Inhaled Oxygen Concentration - - Weight 64.4 kg (142 lb) 01/10/2016 9:23 AM CDT Height 160 cm (5' 3) 01/10/2016 9:23 AM CDT Body Mass Index 25.15 01/10/2016 9:23 AM CDT Plan of Treatment Health Maintenance Due Date Last Done Comments DTAP/TDAP/TD VACCINES (1 - Tdap) 1966 PNEUMOCOCCAL VACCINE 50+ YEARS (1 of 1 - PCV) 02/01/19 97 ZOSTER VACCINE (1 of 2) 1997 OSTEOPOROSIS SCREENING 02/02/2012 RSV VACCINE (60+ or ) (1 - 1-dose 75+ series) 2022 INFLUENZA VACCINE (#1) 2025 Insurance Care Teams Class B Truck Driver Relationship Specialty Start Date End Date Toi Tillman MD PCP - General Family Practice 01/10/16
== END 2025-04-12 09:58 | disposition home or self-care (01) ==
LOC: ANHIMG 10:00
PROVIDERS: PCP Family Medicine; Visit Provider Family Medicine
DX: Z12.31 Encounter for screening mammogram for malignant neoplasm of breast (principal)
CPT/HCPCS: 77063; 77067